=== PATIENT | female | born 1945 | race Caucasian/White ===

== ENCOUNTER 2020-03-29 08:03 | Inpatient (IN) | payer MEDICARE, SELFPAY ==
[~2020-03-29] VITALS: Ht 160 cm; Wt 68.0 kg
[2020-03-29 08:22] VITALS: BP 131/67
--- NOTE | 2020-03-29 08:22 | NUR ---
74 Y/O F C/C DIARRHEA SINCE THE March, ON/OFF, NO HEMATOCHEZIA, 3-4 EPISODES/DAY. PER PT OBTAINED RESULTS YESTERDAY OF BEING POSITIVE COVID. PT PRESENTS IN NO DISTRESS, EUPNIC, VSS, AMBULATORY, A/OX4. PT NKA. HX HTN,DM,HDL. RX WITH PT. NO VOMITTING. SIDE RAIL X1.
--- NOTE | 2020-03-29 08:43 | NUR ---
XRAY AT BEDSIDE
--- NOTE | 2020-03-29 09:13 | NUR ---
74 YO FEMALE CO DIARRHEA SINCE THE March, ON/OFF, NO HEMATOCHEZIA. PER PT POSITIVE COVID, OBTAINED RESULTS YESTERDAY. PT EUPNIC, NO DISTRESS. VSS. AMBULATORY. A/OX4. HX HTN,DM,HDL NKA
[2020-03-29 09:15] LABS: BASOPHILS % (AUTO) 0.9 % (0.0-2.0); HEMATOCRIT 40.2 % (36-48); HEMOGLOBIN 13.5 g/dL (12.0-16.0); LYMPHOCYTES # (AUTO) 0.9 K/uL (2.5-16.5); LYMPHOCYTES % (AUTO) 25.8 % (20.5-51.1); MEAN CORPUSCULAR HEMOGLOBIN 33 pg (27-31); MEAN CORPUSCULAR HGB CONC 34 g/dL (33-37); MEAN CORPUSCULAR VOLUME 96.6 fL (80-94); MONOCYTES # (AUTO) 0.4 K/uL (0.8-1.0); MONOCYTES % (AUTO) 11.5 % (1.7-9.3); NEUTROPHILS # (AUTO) 2.2 K/uL (1.8-7.7); NEUTROPHILS % (AUTO) 61.8 % (42.2-75.2); PLATELET COUNT (AUTO) 96 K/uL (140-450); RED BLOOD CELL COUNT(AUTO) 4.16 MIL/uL (4.20-5.40); RED CELL DISTRIBUTION WIDTH 13.2 % (11.6-13.7); WHITE BLOOD COUNT (AUTO) 3.5 K/uL (4.8-10.8)
--- NOTE | 2020-03-29 09:17 | NUR ---
PT TAKEN TO CT VIA JEANA
--- NOTE | 2020-03-29 09:19 | NUR ---
Trisha newby in [facility] - 03/29/20 at [address] SCAN VIA JEANA
--- NOTE | 2020-03-29 09:30 | NUR ---
PT RETURNED FROM CT
[2020-03-29 09:31] LABS: ALBUMIN 3.6 g/dL (3.4-5.0); ANION GAP 16.8 (8-16); ASPARTATE AMINOTRANSFERASE 55 U/L (15-37); CARBON DIOXIDE 23.2 mmol/L (21-32); CHLORIDE 102 mmol/L (98-107); CREATININE 0.8 mg/dL (0.6-1.3); GLUCOSE 129 mg/dL (74-106); SODIUM SERUM 138 mmol/L (136-145); TOTAL BILIRUBIN 0.5 mg/dL (0.0-1.0); UREA NITROGEN, BLOOD 11 mg/dL (7-18)
[2020-03-29 09:33] LABS: PROTHROMBIN TIME 10.4 secs (10.8-13.4)
[2020-03-29 09:49] LABS: C-REACTIVE PROTEIN QUANT 1.5 mg/dL (0.0-0.9)
[2020-03-29] MEDS ORDERED: AZITHROMYCIN 500 MG in DEXTROSE 5% 250 ML IV ONE (10:10)
[2020-03-29 10:18] LABS: LACTATE DEHYDROGENASE 260 U/L (81-234)
[2020-03-29] MEDS ORDERED: AZITHROMYCIN 500 MG INJ VIAL IV ONE (10:21)
[2020-03-29] MEDS ORDERED: GLIP10TA3 PO (10:38)
[2020-03-29] MEDS ORDERED: METF1000 PO (10:40)
[2020-03-29] MEDS ORDERED: SIMV10TA1 PO (10:41)
[2020-03-29] MEDS ORDERED: LISI5TAB18 PO (10:43)
--- NOTE | 2020-03-29 10:47 | NUR ---
PT WILL BE TRANSFERRED TO ANOTHER FACILITY PER INSURANCE
--- NOTE | 2020-03-29 11:29 | NUR ---
PT SLEEPING IN BED. NO RESP DISTRESS. ALL VSS.
[2020-03-29 14:58] LABS: APPEARANCE,URINE CLEAR (CLEAR); BILIRUBIN,URINE NEGATIVE (NEGATIVE); BLOOD, URINE NEGATIVE (NEGATIVE); COLOR,URINE YELLOW (YELLOW); LEUKOCYTE ESTERASE ,URINE NEGATIVE (NEGATIVE); NITRITE, URINE NEGATIVE (NEGATIVE); UGLUCOSE NEGATIVE (NEGATIVE)
[2020-03-29] MEDS ORDERED: HYDROcodone/APAP 5/325 MG 1 TAB TAB PO PRN (15:00)
[2020-03-29] MEDS ORDERED: ACETAMINOPHEN 325 MG TAB PO PRN (15:00)
[2020-03-29] MEDS ORDERED: ONDANSETRON 4 MG/2 ML VIAL IVP PRN (15:00)
[2020-03-29] MEDS ORDERED: ALBUTEROL HFA MDI 90 MCG/ACTUATION 8 GM INH PRN (15:35)
--- NOTE | 2020-03-29 15:45 | NUR ---
RECEIVED PT FROM ED NURSE JANINA. PT IS ALERT AND AWAKE TIMES 4. PT DOES NOT COMPLAIN OF ANY PAIN AT THIS TIME. RESPIRATIONS ARE EVEN AND UNLABORED ON ROOM AIR. SKIN IS INTACT, WITH IV ASYMPTOMATIC AND PATENT. PT IS CURRENTLY UNDER PROPER DROPLET PRECAUTIONS. VITAL SIGNS ARE WITHIN NORMAL LIMITS. BELONGINGS ARE WITH PT. SAFETY MEASURES IN PLACE AND WILL CONTINUE TO MONITOR.
[2020-03-29 15:50] VITALS: BP 122/49
--- NOTE | 2020-03-29 15:52 | NUR ---
Patient will be admitted to care of DR BROWNING. Admited to [facility]. Will go to room 129A. Belongings list completed. Report to ANKIT ZHENG.
--- NOTE | 2020-03-29 15:55 | NUR ---
MRSA SWAB HAS BEEN COLLECTED.
--- NOTE | 2020-03-29 16:10 | NUR ---
DISCHARGE PLANNING: THIS IS A 74 Y/O FEMALE PATIENT FROM HOME, WHO CAME IN DUE TO COUGH, DIARRHEA. PAST MEDICAL HISTORY INCLUDE HTN, HLD AND DM. INITIAL DIAGNOSIS OF COVID. COVID POSITIVE. ON ROCEPHIN AND AZITHROMYCIN. ON ROOM AIR. ID CONSULT IN PLACE. DC PLAN PENDING ON PATIENT'S RESPONSE TO TREATMENT.
--- NOTE | 2020-03-29 17:50 | NUR ---
PT IS CURRENTLY SITTING IN BED WATCHING TV WITH NO SIGNS OF DISTRESS AT THIS TIME. SAFETY MEASURES IN PLACE AND WILL CONTINUE TO MONITOR.
--- NOTE | 2020-03-29 18:35 | NUR ---
PT IS CURRENTLY SITTING IN BED TALKING ON THE PHONE WITH NO SIGNS OF DISTRESS. PATIENTS DINNER IS AT BEDSIDE. PT DOES NOT COMPLAIN OF ANY PAIN AT THIS TIME. SAFETY MEASURES IN PLACE AND WILL CONTINUE TO MONITOR.
--- NOTE | 2020-03-29 18:36 | NUR ---
PT ASKED FOR MORE WATER. WILL ENDORSE TO PROTECTIVE SERVICE SPECIALIST NURSE FOR CONTINUITY OF CARE.
[2020-03-29] MEDS ORDERED: ALBUTEROL 0.083% 2.5 MG/3 ML NEBU INH SCH (19:00)
[2020-03-29 20:00] VITALS: BP 127/51
--- NOTE | 2020-03-29 20:00 | NUR ---
RECEIVED PATIENT AWAKE IN BED. NO S/S OF DISTRESS NOTED. PT ON ROOM AIR. NO SOB. PT WITH INTERMITTEN DRY COUGH. NO C/O PAIN AT THIS TIME. BED LOWERED WITH CALL LIGHT WITHIN REACH
[2020-03-29] MEDS ORDERED: SIMVASTATIN 10 MG TAB PO SCH (21:00)
[2020-03-29] MEDS: BLOOD GLUCOSE MONITORING 1 DEV DEV FS SCH (21:47)
[2020-03-29] MEDS: ZINC SULF 220 MG CAP PO SCH (21:47)
[2020-03-29] MEDS: APIXABAN 2.5 MG TAB PO SCH (21:47)
[2020-03-29] MEDS: metroNIDAZOLE 500 MG TAB PO SCH (21:47)
[2020-03-29] MEDS: INSULIN LISPRO SLIDING SCALE 100 UNITS/ML VIAL SUBQ PRN (21:55)
[2020-03-30] VITALS: BP 113/57
--- NOTE | 2020-03-30 00:36 | NUR ---
EDUCATED PT ABOUT THE NEED FOR SPUTUM AND STOOL SAMPLE FOR LAB. PT VERBALIZED UNDERSTANDING
--- NOTE | 2020-03-30 03:18 | NUR ---
PT ASLEEP IN BED. NO S/S OF DISTRESS NOTED
[2020-03-30] MEDS: metroNIDAZOLE 500 MG TAB PO SCH ×2 (05:14→13:16)
[2020-03-30 05:21] VITALS: BP 104/69
--- NOTE | 2020-03-30 05:23 | NUR ---
SPUTUM SAMPLE COLLECTED
[2020-03-30] MEDS: BLOOD GLUCOSE MONITORING 1 DEV DEV FS SCH ×2 (07:27→11:30)
--- NOTE | 2020-03-30 07:28 | NUR ---
PT REPORT GIVEN TO DAYSHIFT NURSE . PT ENDORSED IN STABLE CONDITION
--- NOTE | 2020-03-30 07:29 | NUR ---
RECEIVED REPORT FROM RESIDENTIAL TEAM LEADER NURSE. PATIENT LYING DOWN IN BED SLEEPING, AROUSABLE BY VOICE. NO DISTRESS NOTED. DENIES ANY PAIN. AAOX4, CALM, COOPERATIVE, SKIN COLOR APPROPRIATE TO ETHNICITY, WARM TO TOUCH. SKIN INTACT. RESPIRATIONS EVEN, UNLABORED, ON ROOM AIR. IV SITE INTACT, PATENT, AND INFUSING IVF PER MD ORDERS. REVIEWED PLAN OF CARE WITH PATIENT. PATIENT VERBALIZED UNDERSTANDING SAFETY MEASURES IN PLACE CALL LIGHT WITHIN REACH. WILL CONTINUE TO MONITOR.
[2020-03-30 08:00] VITALS: BP 140/55
[2020-03-30] MEDS: APIXABAN 2.5 MG TAB PO SCH (08:58)
[2020-03-30] MEDS: ZINC SULF 220 MG CAP PO SCH (08:58)
--- NOTE | 2020-03-30 08:59 | NUR ---
SCHEDULED MEDICATIONS DUE GIVEN. WILL CONTINUE TO MONITOR.
[2020-03-30] MEDS ORDERED: LISINOPRIL 5 MG TAB PO SCH (09:00)
[2020-03-30] MEDS ORDERED: AZITHROMYCIN 500 MG in DEXTROSE 5% 250 ML IV SCH (09:00)
[2020-03-30] MEDS ORDERED: ENOXAPARIN 40 MG/0.4 ML SYR SUBQ SCH (09:00)
[2020-03-30] MEDS ORDERED: LEVOFLOXACIN 500 MG TAB PO SCH (09:00)
[2020-03-30] MEDS ORDERED: ASCORBIC ACID 500 MG TAB PO SCH (09:00)
--- NOTE | 2020-03-30 09:27 | NUR ---
PATIENT HAS BEEN SCREENED AND CATEGORIZED MODERATE NUTRITION RISK. PATIENT WILL BE SEEN WITHIN 3-5 DAYS OF ADMISSION. 04/01/2020-04/03/[address]
[2020-03-30 12:00] VITALS: BP 150/56
[2020-03-30] MEDS: INSULIN LISPRO SLIDING SCALE 100 UNITS/ML VIAL SUBQ PRN (13:16)
--- NOTE | 2020-03-30 13:17 | NUR ---
SCHEDULED MEDICATIONS DUE GIVEN. WILL CONTINUE TO MONITOR.
[2020-03-30 13:58] LABS: BASOPHILS # (AUTO) 0.1 K/uL (0.00-0.22); BASOPHILS % (AUTO) 1.5 % (0.0-2.0); HEMATOCRIT 38.5 % (36-48); HEMOGLOBIN 12.9 g/dL (12.0-16.0); LYMPHOCYTES # (AUTO) 0.9 K/uL (2.5-16.5); LYMPHOCYTES % (AUTO) 26.7 % (20.5-51.1); MEAN CORPUSCULAR HEMOGLOBIN 33 pg (27-31); MEAN CORPUSCULAR HGB CONC 33 g/dL (33-37); MEAN CORPUSCULAR VOLUME 97.1 fL (80-94); MONOCYTES # (AUTO) 0.5 K/uL (0.8-1.0); MONOCYTES % (AUTO) 15.4 % (1.7-9.3); NEUTROPHILS # (AUTO) 1.9 K/uL (1.8-7.7); NEUTROPHILS % (AUTO) 56.4 % (42.2-75.2); PLATELET COUNT (AUTO) 121 K/uL (140-450); RED BLOOD CELL COUNT(AUTO) 3.96 MIL/uL (4.20-5.40); RED CELL DISTRIBUTION WIDTH 13.1 % (11.6-13.7); WHITE BLOOD COUNT (AUTO) 3.5 K/uL (4.8-10.8)
[2020-03-30 14:52] LABS: ALBUMIN 3.1 g/dL (3.4-5.0); ASPARTATE AMINOTRANSFERASE 102 U/L (15-37); CARBON DIOXIDE 22.4 mmol/L (21-32); CHLORIDE 101 mmol/L (98-107); GLUCOSE 333 mg/dL (74-106); POTASSIUM 4.4 mmol/L (3.5-5.1); SODIUM SERUM 136 mmol/L (136-145); TOTAL BILIRUBIN 0.3 mg/dL (0.0-1.0); UREA NITROGEN, BLOOD 12 mg/dL (7-18)
--- NOTE | 2020-03-30 16:40 | NUR ---
DISCHARGE INSTRUCTIONS PROVIDED TO PATIENT IN [place] USING GLASS CARRIER PHONE # [phone]. INSTRUCTIONS ON NEW/CHANGED MEDICATIONS REGIMEN AND SIDE EFFECTS, COVID 19 HOME ISOLATION AND PRECAUTIONS INSTRUCTIONS HANDOUT GIVEN, AND TO FOLLOW-UP WITH PCP IN 2 WEEKS. ANSWERED ALL OF PATIENT'S QUESTIONS REGARDING DISCHARGE TO HOME WITH COVID POSITIVE AND PNA. PATIENT VERBALIZED COMPLETE UNDERSTANDING. IV SITE REMOVED WITH MINIMAL BLOOD AND LUMEN COMPLETELY INTACT. ID BANDS REMOVED. PATIENT TO GET DRESSED AND THEN TO DRIVE HERSELF HOME. PATIENT REFUSES WHEELCHAIR AND WILL AMBULATE OUTSIDE HOSPITAL. WILL CONTINUE TO MONITOR.
--- NOTE | 2020-03-30 16:50 | NUR ---
PATIENT ALL DRESSED AND READY TO GO HOME. ESCORTED PATIENT DOWN TO LOBBY VIA STEADY AMBULATION. PATIENT DISCHARGED AT THIS TIME TO HOME IN STABLE CONDITION.
== END 2020-03-30 16:50 | disposition home or self-care (01) | DRG 177 ==
LOC: EEVIPCON 08:03 → MED 08:03 → MMU 15:01
PROVIDERS: ADMIT Internal Medicine; ATTEND Internal Medicine
DX: U07.1 COVID-19 (principal); J12.89 Other viral pneumonia; J98.11 Atelectasis; E11.9 Type 2 diabetes mellitus without complications; E78.00 Pure hypercholesterolemia, unspecified; E78.5 Hyperlipidemia, unspecified; I10 Essential (primary) hypertension; R09.02 Hypoxemia; I25.10 Atherosclerotic heart disease of native coronary artery without angina pectoris; Z90.710 Acquired absence of both cervix and uterus; Z95.0 Presence of cardiac pacemaker
CPT/HCPCS: 36415; 36600; 71045; 80053; 81003; 82550; 82728; 82803; 82948; 83605; 83615; 83880; 84484; 85025; 85379; 85384; 85610; 85730; 86140; 87040; 87070; 87081; 87086; 87205; 93005; 96365; 99285; J0456; J0696; J1815; J7060; Q0092

== ENCOUNTER 2021-01-19 12:17 | Emergency (ER) | payer MEDICARE, SELFPAY ==
[~2021-01-19] VITALS: Ht 160 cm; Wt 65.8 kg
[~2021-01-19 12:17] MED LIST: GLIP10TA3 PO; LISI5TAB18 PO; METF1000 PO; SIMV10TA1 PO
--- NOTE | 2021-01-19 12:25 | NUR ---
Patient ambulated to bed 4 with family. RN evaluating the patient at bedside.
[2021-01-19 12:30] VITALS: BP 141/45
--- NOTE | 2021-01-19 12:35 | NUR ---
Pt not feeling well x2 weeks. Pt feeling more tired and fatigue than usual. Pt c/o of pain in hips that radiates to chest with palpitations on 01/16/21. Pt denies chest pain at this time. pt c/o upper back pain 04/12 with a headache. Pt has pacemaker placed in 2010. Pt on cardiac tele monitor. Awaiting for ERMD to evaluate pt. Allergies: NKA
--- NOTE | 2021-01-19 13:30 | NUR ---
computer operations technician at bedside.
--- NOTE | 2021-01-19 13:44 | NUR ---
Phleb at bedside
[2021-01-19 13:53] LABS: BASOPHILS % (AUTO) 0.2 % (0.0-2.0); EOSINOPHILS % (AUTO) 0.4 % (0.0-4.0); HEMATOCRIT 38.4 % (36-48); HEMOGLOBIN 12.9 g/dL (12.0-16.0); LYMPHOCYTES # (AUTO) 0.9 K/uL (2.5-16.5); LYMPHOCYTES % (AUTO) 12.2 % (20.5-51.1); MEAN CORPUSCULAR HEMOGLOBIN 33 pg (27-31); MEAN CORPUSCULAR HGB CONC 34 g/dL (33-37); MEAN CORPUSCULAR VOLUME 96.6 fL (80-94); MONOCYTES # (AUTO) 0.9 K/uL (0.8-1.0); MONOCYTES % (AUTO) 12.1 % (1.7-9.3); NEUTROPHILS # (AUTO) 5.3 K/uL (1.8-7.7); NEUTROPHILS % (AUTO) 75.1 % (42.2-75.2); PLATELET COUNT (AUTO) 126 K/uL (140-450); RED BLOOD CELL COUNT(AUTO) 3.97 MIL/uL (4.20-5.40); RED CELL DISTRIBUTION WIDTH 13.4 % (11.6-13.7)
--- NOTE | 2021-01-19 13:59 | NUR ---
Dr. Machado is evaluating the patient at bedside.
[2021-01-19 14:08] LABS: ALBUMIN 3.6 g/dL (3.4-5.0); ANION GAP 12.7 (8-16); ASPARTATE AMINOTRANSFERASE 22 U/L (15-37); CARBON DIOXIDE 25.6 mmol/L (21-32); CHLORIDE 102 mmol/L (98-107); GLUCOSE 202 mg/dL (74-106); POTASSIUM 4.3 mmol/L (3.5-5.1); SODIUM SERUM 136 mmol/L (136-145); TOTAL BILIRUBIN 0.4 mg/dL (0.0-1.0); UREA NITROGEN, BLOOD 21 mg/dL (7-18)
[2021-01-19] MEDS ORDERED: GABA-636 PO (14:55)
[2021-01-19 15:13] VITALS: BP 128/55
--- NOTE | 2021-01-19 15:14 | NUR ---
Patient discharged with v/s stable. Written and verbal after care instructions given and explained.Patient alert, oriented and verbalized understanding of instructions. Ambulatory with steady gait. All questions addressed prior to discharge. ID band removed. Patient advised to follow up with PMD. Rx of Gabapentin was given. Patient educated on indication of medication including possible reaction and side effects. Opportunity to ask questions provided and answered.
== END 2021-01-19 15:14 | disposition home or self-care (01) ==
LOC: MED 12:17
DX: E11.65 Type 2 diabetes mellitus with hyperglycemia (principal); G90.09 Other idiopathic peripheral autonomic neuropathy; R42 Dizziness and giddiness; I10 Essential (primary) hypertension; E78.00 Pure hypercholesterolemia, unspecified; Z20.822 Contact with and (suspected) exposure to COVID-19; Z79.899 Other long term (current) drug therapy; Z95.0 Presence of cardiac pacemaker
CPT/HCPCS: 36415; 71045; 80053; 84484; 85025; 93005; 99285; U0003

== ENCOUNTER 2023-01-08 16:20 | Emergency (ER) | payer MEDICARE ==
[~2023-01-08] VITALS: Ht 154.9 cm; Wt 65.8 kg
[~2023-01-08 16:20] MED LIST changes: +GABA-636 PO; +METF-1274 PO; -METF1000 PO; +SIMV-371 PO; -SIMV10TA1 PO
[2023-01-08 16:53] VITALS: BP 140/69
--- NOTE | 2023-01-08 17:08 | NUR ---
LAB AT BEDSIDE.
--- NOTE | 2023-01-08 17:12 | NUR ---
77 Y/O F BIB SELF C/O NECK, HEAD AND R SHOULDER PAIN 8/10 AND HEADACHE X1 WEEK. PMH: HTN,DM, CHOLESTEROL
[2023-01-08 17:17] LABS: BASOPHILS % (AUTO) 0.3 % (0.0-2.0); EOSINOPHILS # (AUTO) 0.1 K/uL (0-0.4); EOSINOPHILS % (AUTO) 1.2 % (0.0-4.0); HEMATOCRIT 38.6 % (36-48); HEMOGLOBIN 13.1 g/dL (12.0-16.0); LYMPHOCYTES # (AUTO) 1.3 K/uL (2.5-16.5); LYMPHOCYTES % (AUTO) 19.5 % (20.5-51.1); MEAN CORPUSCULAR HEMOGLOBIN 32 pg (27-31); MEAN CORPUSCULAR HGB CONC 34 g/dL (33-37); MEAN CORPUSCULAR VOLUME 95.2 fL (80-94); MONOCYTES # (AUTO) 0.7 K/uL (0.8-1.0); NEUTROPHILS # (AUTO) 4.4 K/uL (1.8-7.7); PLATELET COUNT (AUTO) 132 K/uL (140-450); RED BLOOD CELL COUNT(AUTO) 4.05 MIL/uL (4.20-5.40); RED CELL DISTRIBUTION WIDTH 13.4 % (11.6-13.7); WHITE BLOOD COUNT (AUTO) 6.5 K/uL (4.8-10.8)
[2023-01-08 17:33] LABS: ALBUMIN 3.7 g/dL (3.4-5.0); ASPARTATE AMINOTRANSFERASE 26 U/L (15-37); CARBON DIOXIDE 21.3 mmol/L (21-32); CHLORIDE 105 mmol/L (98-107); CREATININE 0.9 mg/dL (0.6-1.3); GLUCOSE 163 mg/dL (74-106); POTASSIUM 4.3 mmol/L (3.5-5.1); SODIUM SERUM 141 mmol/L (136-145); TOTAL BILIRUBIN 0.3 mg/dL (0.0-1.0); UREA NITROGEN, BLOOD 22 mg/dL (7-18)
[2023-01-08] MEDS ORDERED: ACETAMINOPHEN 325 MG TAB PO ONE (18:05)
[2023-01-08] MEDS ORDERED: MECLIZINE 25 MG TAB PO ONE (18:05)
--- NOTE | 2023-01-08 18:18 | NUR ---
PT TO CT SCAN VIA WHEELCHAIR.
--- NOTE | 2023-01-08 19:19 | NUR ---
GAVE REPORT TO ALONSO KEBEDE.
--- NOTE | 2023-01-08 21:06 | NUR ---
PT RESTING IN BED WITH HOB ELEVATED. PT PAIN LEVEL 10. PENDING RESULTS / DISPO
[2023-01-08] MEDS ORDERED: MECL-303 PO (21:12)
[2023-01-08 21:19] VITALS: BP 141/60
--- NOTE | 2023-01-08 21:19 | NUR ---
Patient discharged with v/s stable. Written and verbal after care instructions given and explained. Patient verbalized understanding. Ambulatory with steady gait. All questions addressed prior to discharge. Advised to follow up with PMD.
--- NOTE | 2023-01-08 21:31 | NUR ---
The patient's care was reviewed and supervised by Samreen Orta RN.
== END 2023-01-08 21:19 | disposition home or self-care (01) ==
LOC: MED 16:20
DX: R51.9 Headache, unspecified (principal); M54.2 Cervicalgia; I10 Essential (primary) hypertension; E11.9 Type 2 diabetes mellitus without complications; E78.5 Hyperlipidemia, unspecified; Z79.4 Long term (current) use of insulin; Z79.899 Other long term (current) drug therapy
CPT/HCPCS: 36415; 70450; 80053; 85025; 99285; J8597

== ENCOUNTER 2023-01-29 10:33 | Inpatient (IN) | payer MEDICARE ==
[~2023-01-29] VITALS: Ht 157.5 cm; Wt 72.1 kg
[2023-01-29 10:33] VITALS: BP 174/78
[~2023-01-29 10:33] MED LIST changes: +MECL-303 PO
--- NOTE | 2023-01-29 10:37 | NUR ---
Patient BIBA to bed 7.
--- NOTE | 2023-01-29 10:50 | NUR ---
IV started, blood work obtained walked to lab.
--- NOTE | 2023-01-29 11:13 | NUR ---
PT.BACK FROM CT.
[2023-01-29 11:22] LABS: BASOPHILS % (AUTO) 0.4 % (0.0-2.0); EOSINOPHILS # (AUTO) 0.1 K/uL (0-0.4); HEMATOCRIT 40.1 % (36-48); HEMOGLOBIN 13.5 g/dL (12.0-16.0); LYMPHOCYTES # (AUTO) 1.5 K/uL (2.5-16.5); LYMPHOCYTES % (AUTO) 30.5 % (20.5-51.1); MEAN CORPUSCULAR HEMOGLOBIN 32 pg (27-31); MEAN CORPUSCULAR HGB CONC 34 g/dL (33-37); MEAN CORPUSCULAR VOLUME 95.2 fL (80-94); MONOCYTES # (AUTO) 0.5 K/uL (0.8-1.0); MONOCYTES % (AUTO) 9.6 % (1.7-9.3); NEUTROPHILS # (AUTO) 2.9 K/uL (1.8-7.7); NEUTROPHILS % (AUTO) 57.5 % (42.2-75.2); PLATELET COUNT (AUTO) 139 K/uL (140-450); RED BLOOD CELL COUNT(AUTO) 4.22 MIL/uL (4.20-5.40); RED CELL DISTRIBUTION WIDTH 13.3 % (11.6-13.7)
[2023-01-29] MEDS ORDERED: DAPA10TA PO (11:40)
[2023-01-29] MEDS ORDERED: LISI-486 PO (11:40)
[2023-01-29 11:41] LABS: APPEARANCE,URINE CLEAR (CLEAR); BILIRUBIN,URINE NEGATIVE (NEGATIVE); BLOOD, URINE NEGATIVE (NEGATIVE); COLOR,URINE YELLOW (YELLOW); LEUKOCYTE ESTERASE ,URINE NEGATIVE (NEGATIVE); NITRITE, URINE NEGATIVE (NEGATIVE); PH,URINE 6.5 (5.0-9.0); UGLUCOSE 3+ (NEGATIVE)
[2023-01-29] MEDS ORDERED: OMEG-64 PO (11:41)
[2023-01-29] MEDS ORDERED: DAPA5TAB PO (11:41)
[2023-01-29 11:43] LABS: PROTHROMBIN TIME 11.6 secs (10.8-13.4)
[2023-01-29 11:44] LABS: ALBUMIN 3.6 g/dL (3.4-5.0); ANION GAP 16.3 (8-16); ASPARTATE AMINOTRANSFERASE 24 U/L (15-37); CARBON DIOXIDE 25.8 mmol/L (21-32); CHLORIDE 99 mmol/L (98-107); CREATININE 0.9 mg/dL (0.6-1.3); GLUCOSE 239 mg/dL (74-106); POTASSIUM 4.1 mmol/L (3.5-5.1); SODIUM SERUM 137 mmol/L (136-145); TOTAL BILIRUBIN 0.4 mg/dL (0.0-1.0); UREA NITROGEN, BLOOD 15 mg/dL (7-18)
--- NOTE | 2023-01-29 12:05 | NUR ---
MD NEUROLOGIST CALLED AND SPOKE WITH ER ABOUT PT.
--- NOTE | 2023-01-29 12:06 | NUR ---
The patient's care was reviewed and supervised by IQRA NICOLAS RN.
[2023-01-29] MEDS ORDERED: ASPIRIN 325 MG TAB PO ONE (12:10)
--- NOTE | 2023-01-29 12:46 | NUR ---
Patient swallow eval performed and was able to swallow water and take apple sauce. No evidence of aspiration or distress noted.
[2023-01-29] MEDS ORDERED: MORPHINE SULFATE 4 MG/ML SYR IVP ONE (13:15)
[2023-01-29] MEDS ORDERED: ONDANSETRON 4 MG/2 ML VIAL IVP ONE (13:15)
--- NOTE | 2023-01-29 13:58 | NUR ---
Going to CT with tech.
[2023-01-29] MEDS ORDERED: HEPARIN PER PHARMACY MC STA (14:46)
[2023-01-29] MEDS ORDERED: HEPARIN PER PHARMACY MC PRN ×2 (15:20→17:00)
[2023-01-29] MEDS ORDERED: MORPHINE SULFATE 4 MG/ML SYR IVP PRN (15:25)
[2023-01-29] MEDS ORDERED: ACETAMINOPHEN 325 MG TAB PO PRN (15:25)
[2023-01-29] MEDS ORDERED: MAG SULF 2000 MG/WATER PREMIX 50 ML IV PRN (15:25)
[2023-01-29] MEDS ORDERED: POTASSIUM CHLORIDE 10 MEQ TABER PO PRN (15:25)
[2023-01-29] MEDS ORDERED: ONDANSETRON 4 MG/2 ML VIAL IVP PRN (15:25)
[2023-01-29] MEDS ORDERED: KCL 20 MEQ IN 100 mL PREMIX 200 ML IV PRN (15:25)
[2023-01-29] MEDS ORDERED: HYDROcodone/APAP 5/325 MG 1 TAB TAB PO PRN (15:25)
[2023-01-29] MEDS: hePARIN / DEXT 5% PREMIX 250 ML IV SCH ×3 (15:50→23:35)
[2023-01-29] MEDS ORDERED: LEVOFLOXACIN 500 MG/D5W PREMIX 100 ML IV SCH (16:00)
--- NOTE | 2023-01-29 16:00 | NUR ---
PT ARRIVED ON UNIT VIA BED. IV HEPARIN INFUSING AT 700U/HR.
[2023-01-29 16:06] LABS: PROTHROMBIN TIME 11.5 secs (10.8-13.4)
--- NOTE | 2023-01-29 16:17 | NUR ---
Dr. Parry at bedside to speak with patient and family.
--- NOTE | 2023-01-29 16:29 | NUR ---
Patient hooked up to patient monitor. Vital signs stable. Dr. Parry spoke with family member at bedside.
--- NOTE | 2023-01-29 16:46 | NUR ---
Report given to ANKIT Waldron for continuity of care. Patient in stable condition. Still on heparin drip. Vitals stable. Patient aware of transfer to [facility]. No c/o pain. Belongings with patient.
--- NOTE | 2023-01-29 17:06 | NUR ---
PATIENT HAS BEEN SCREENED AND CATEGORIZED MODERATE NUTRITION RISK. PATIENT WILL BE SEEN WITHIN 3-5 DAYS OF ADMISSION. REVIEWED BY FELIPE NEELY RD
--- NOTE | 2023-01-29 19:42 | NUR ---
RECEIVED REPORT FROM DAY SHIFT NURSE FOR CONTINUITY OF CARE. PT IS AWAKE AT THIS TIME, ALERT AND ORIENTED X4. CROATIAN SPEAKING, NO COMPLAINTS OF CHEST PAIN AT THIS TIME. PT IS ON ROOM AIR WITH NO APPARENT SIGNS OF RESPIRATORY DISTRESS NOTED. IV SITE TO LEFT AC 20 GAUGE, INTACT AND PATENT. CALL LIGHT WITHIN REACH, SAFETY MEASURES IN PLACE, WILL MONITOR FREQUENTLY THROUGHOUT SHIFT.
[2023-01-29 20:00] VITALS: BP 146/62
[2023-01-30] VITALS: BP 117/68
--- NOTE | 2023-01-30 01:51 | NUR ---
PT ASLEEP AT THIS TIME. NO APPARENT SIGNS OF DISTRESS NOTED. WILL CONTINUE TO MONITOR.
[2023-01-30 04:00] VITALS: BP 129/70
[2023-01-30 06:08] LABS: BASOPHILS % (AUTO) 0.5 % (0.0-2.0); EOSINOPHILS # (AUTO) 0.1 K/uL (0-0.4); HEMATOCRIT 38.5 % (36-48); HEMOGLOBIN 13.1 g/dL (12.0-16.0); LYMPHOCYTES # (AUTO) 1.7 K/uL (2.5-16.5); MEAN CORPUSCULAR HEMOGLOBIN 32 pg (27-31); MEAN CORPUSCULAR HGB CONC 34 g/dL (33-37); MEAN CORPUSCULAR VOLUME 94.3 fL (80-94); MONOCYTES # (AUTO) 0.5 K/uL (0.8-1.0); MONOCYTES % (AUTO) 8.2 % (1.7-9.3); NEUTROPHILS # (AUTO) 4.2 K/uL (1.8-7.7); NEUTROPHILS % (AUTO) 64.3 % (42.2-75.2); PLATELET COUNT (AUTO) 142 K/uL (140-450); RED BLOOD CELL COUNT(AUTO) 4.09 MIL/uL (4.20-5.40); RED CELL DISTRIBUTION WIDTH 13.2 % (11.6-13.7); WHITE BLOOD COUNT (AUTO) 6.5 K/uL (4.8-10.8)
[2023-01-30] MEDS: hePARIN / DEXT 5% PREMIX 250 ML IV SCH (06:14)
[2023-01-30 06:18] LABS: ANION GAP 10.2 (8-16); CHLORIDE 102 mmol/L (98-107); CREATININE 0.8 mg/dL (0.6-1.3); GLUCOSE 109 mg/dL (74-106); POTASSIUM 4.2 mmol/L (3.5-5.1); SODIUM SERUM 137 mmol/L (136-145); UREA NITROGEN, BLOOD 15 mg/dL (7-18)
[2023-01-30 06:54] LABS: MAGNESIUM 1.7 mg/dL (1.8-2.4); PHOSPHORUS 3.9 mg/dL (2.5-4.9)
[2023-01-30 08:00] VITALS: BP 130/74
[2023-01-30] MEDS: DOCUSATE SODIUM 100 MG GELCAP PO SCH (08:10)
[2023-01-30] MEDS: ECOTRIN 81 MG TABEC PO SCH (08:10)
[2023-01-30] MEDS: ATORVASTATIN 20 MG TAB PO SCH (08:10)
[2023-01-30] MEDS ORDERED: LEVOFLOXACIN 250 MG/D5 PREMIX 50 ML IV SCH (09:00)
[2023-01-30 12:00] VITALS: BP 117/50
--- NOTE | 2023-01-30 13:05 | NUR ---
CALL FROM LAB: PTT = 102.9. HEPARIN SHUT OFF (HELD) X 1 HR. WILL RESTART AT 1400 PER PROTOCOL. PT'S DTR AT BEDSIDE AND INFORMED.
--- NOTE | 2023-01-30 14:00 | NUR ---
RESTARTED HEPARIN AT 200 UNITS BELOW CURRENT RATE AFTER BEING OFF FOR ONE HOUR. RATE NOW 750 U/HR.
--- NOTE | 2023-01-30 15:48 | NUR ---
NOTIFIED BY ALAN OF LABORATORY THAT TROPONIN = 1173. DARIEL HURLEY SENT [facility] CURRENT TROPONIN RESULT.
--- NOTE | 2023-01-30 16:11 | NUR ---
DR. LAZARO - NO NEW ORDERS (NNO).
--- NOTE | 2023-01-30 19:00 | NUR ---
RECEIVED REPORT FROM DAY SHIFT NURSE FOR CONTINUITY OF CARE. PT IS AWAKE AT THIS TIME. A&O X4. NO COMPLAINTS OF PAIN AT THIS TIME BUT IS EXPERIENCING DIZZINESS. CURRENTLY ON ROOM AIR SATING WNL. LAB REPORTS SHOW INCREASED TROPONIN LEVEL OF 1173. DR WAS MADE AWARE AND NO NEW ORDERS WERE PLACED. IV SITE LOCATED AT LEFT AC 20 GAUGE. ENCOURAGED PT TO USE CALL LIGHT FOR ASSISTANCE TO THE RESTROOM.
[2023-01-30 20:00] VITALS: BP 147/57
[2023-01-30] MEDS: MAGNESIUM OXIDE 400 MG TAB PO PRN (22:46)
--- NOTE | 2023-01-30 22:53 | NUR ---
PT MAGNESIUM LEVEL OF 1.7. ADMINISTERED MAG-0X 400 MG PO, PT TOLERATED WELL, WILL CONTINUE TO MONITOR.
--- NOTE | 2023-01-30 23:20 | NUR ---
PT'S PTT LEVEL =- 42.1. BOLUS WAS GIVEN AND DRIP RATE WAS CHANGED TO 8.5 ML/HR. PT TOLERATING WELL, WILL CONTINUE TO MONITOR.
[2023-01-31] VITALS: BP 117/48
[2023-01-31] MEDS: hePARIN / DEXT 5% PREMIX 250 ML IV SCH ×2 (00:10)
[2023-01-31 04:00] VITALS: BP 109/61
--- NOTE | 2023-01-31 06:54 | NUR ---
PENDING 0600 APTT RESULTS. VITAL SIGNS WNL. PT STATES NO PAIN AT THIS TIME. WILL ENDORSE TO DAY SHIFT NURSE FOR CONTINUITY OF CARE.
[2023-01-31 06:58] LABS: BASOPHILS % (AUTO) 0.5 % (0.0-2.0); EOSINOPHILS # (AUTO) 0.1 K/uL (0-0.4); EOSINOPHILS % (AUTO) 1.6 % (0.0-4.0); HEMATOCRIT 37.1 % (36-48); HEMOGLOBIN 12.4 g/dL (12.0-16.0); LYMPHOCYTES # (AUTO) 1.1 K/uL (2.5-16.5); LYMPHOCYTES % (AUTO) 24.8 % (20.5-51.1); MEAN CORPUSCULAR HEMOGLOBIN 31 pg (27-31); MEAN CORPUSCULAR HGB CONC 33 g/dL (33-37); MEAN CORPUSCULAR VOLUME 93.8 fL (80-94); MONOCYTES # (AUTO) 0.4 K/uL (0.8-1.0); MONOCYTES % (AUTO) 9.5 % (1.7-9.3); NEUTROPHILS # (AUTO) 2.9 K/uL (1.8-7.7); NEUTROPHILS % (AUTO) 63.6 % (42.2-75.2); PLATELET COUNT (AUTO) 105 K/uL (140-450); RED BLOOD CELL COUNT(AUTO) 3.95 MIL/uL (4.20-5.40); RED CELL DISTRIBUTION WIDTH 12.8 % (11.6-13.7); WHITE BLOOD COUNT (AUTO) 4.6 K/uL (4.8-10.8)
[2023-01-31 07:00] LABS: ANION GAP 9.6 (8-16); CARBON DIOXIDE 29.4 mmol/L (21-32); CHLORIDE 103 mmol/L (98-107); CREATININE 0.7 mg/dL (0.6-1.3); GLUCOSE 157 mg/dL (74-106); SODIUM SERUM 138 mmol/L (136-145); UREA NITROGEN, BLOOD 17 mg/dL (7-18)
[2023-01-31 07:05] LABS: MAGNESIUM 1.7 mg/dL (1.8-2.4); PHOSPHORUS 3.1 mg/dL (2.5-4.9)
--- NOTE | 2023-01-31 07:27 | NUR ---
APTT LEVEL OF 48.6.WILL ENDORSE TO DAY SHIFT NURSE.
[2023-01-31 08:00] VITALS: BP 91/39
[2023-01-31] MEDS: ATORVASTATIN 20 MG TAB PO SCH (10:58)
[2023-01-31] MEDS: DOCUSATE SODIUM 100 MG GELCAP PO SCH (10:59)
[2023-01-31] MEDS: ECOTRIN 81 MG TABEC PO SCH (10:59)
[2023-01-31 12:00] VITALS: BP 133/53
--- NOTE | 2023-01-31 15:51 | NUR ---
RECEIVE SECOND WITHIN THEATRICAL PTT (55.9) RESULT SINCE BEGINNER OF THE SHIFT (FIRST PTT=48.6). THIRD PTT ORDER PLACED FOR 2139. WILL ENDORSE FOR FOLLOW UP. Addendum: 01/31/23 at 1624 by Val Vicente RN RECEIVE [facility] KEMAR ([phone]) CALL FOR UPDATE PATIENT'S STATUS REGARDING TO POSSIBLE DISCHARGE/TRANSFER OUT DATE. NURSE REPORT THAT SOCIAL SERVICE REQUESTING ORDER IS PRESENT; & PATIENT IS POSSIBLE TRANSFER TO OTHER HOSPITAL FOR HEART CATHETER PROCEDURE. THEREFORE; PATIENT WOULD NOT DISCHARGE SOON.
[2023-01-31 16:00] VITALS: BP 146/53
--- NOTE | 2023-01-31 18:52 | NUR ---
ENDORSEMENT PATIENT IN STABLE CONDITION TO PM SHIFT NURSE WHILE HEPARIN DRIP INFUSING @8.5ML/HR VIA LAC. PATIENT ALREADY HAS TWO PTT WITHIN THERAPEUTICAL RANGE. IF 2140'S PTT WITHIN THERAPEUTICAL RANGE, NEXT PTT DRAW WILL SCHEDULE AFTER 24 HOURS
[2023-01-31 20:00] VITALS: BP 142/92
[2023-01-31] MEDS: ZOLPIDEM 5 MG TAB PO PRN (21:17)
[2023-01-31] MEDS: MAGNESIUM OXIDE 400 MG TAB PO PRN (23:08)
[2023-02-01] VITALS (7 sets, daily range): BP systolic 119–138; BP diastolic 48–65
[2023-02-01] MEDS: hePARIN / DEXT 5% PREMIX 250 ML IV SCH (04:43)
[2023-02-01 05:20] LABS: BASOPHILS % (AUTO) 0.5 % (0.0-2.0); EOSINOPHILS # (AUTO) 0.1 K/uL (0-0.4); EOSINOPHILS % (AUTO) 2.2 % (0.0-4.0); HEMATOCRIT 37.2 % (36-48); HEMOGLOBIN 12.4 g/dL (12.0-16.0); LYMPHOCYTES # (AUTO) 1.7 K/uL (2.5-16.5); LYMPHOCYTES % (AUTO) 29.7 % (20.5-51.1); MEAN CORPUSCULAR HEMOGLOBIN 32 pg (27-31); MEAN CORPUSCULAR HGB CONC 33 g/dL (33-37); MEAN CORPUSCULAR VOLUME 94.7 fL (80-94); MONOCYTES # (AUTO) 0.5 K/uL (0.8-1.0); MONOCYTES % (AUTO) 9.6 % (1.7-9.3); NEUTROPHILS # (AUTO) 3.3 K/uL (1.8-7.7); PLATELET COUNT (AUTO) 114 K/uL (140-450); RED BLOOD CELL COUNT(AUTO) 3.93 MIL/uL (4.20-5.40); RED CELL DISTRIBUTION WIDTH 13.1 % (11.6-13.7); WHITE BLOOD COUNT (AUTO) 5.7 K/uL (4.8-10.8)
[2023-02-01 05:38] LABS: ANION GAP 9.1 (8-16); CARBON DIOXIDE 27.9 mmol/L (21-32); CHLORIDE 104 mmol/L (98-107); CREATININE 0.7 mg/dL (0.6-1.3); GLUCOSE 165 mg/dL (74-106); SODIUM SERUM 137 mmol/L (136-145); UREA NITROGEN, BLOOD 16 mg/dL (7-18)
[2023-02-01 05:43] LABS: MAGNESIUM 1.8 mg/dL (1.8-2.4); PHOSPHORUS 3.1 mg/dL (2.5-4.9)
[2023-02-01] MEDS: DOCUSATE SODIUM 100 MG GELCAP PO SCH (10:38)
[2023-02-01] MEDS: ECOTRIN 81 MG TABEC PO SCH (10:38)
[2023-02-01] MEDS: ATORVASTATIN 20 MG TAB PO SCH (10:39)
--- NOTE | 2023-02-01 11:42 | NUR ---
DC PLANNING: PATIENT HAS AN ORDER HIGHER LEVEL OF CARE FOR CARDIAC CATHETERIZATION. FAXED TO [facility] .AWAITING FOR THE RESPONSE . CM TO FOLLOW Addendum: 02/01/23 at 1431 by Bertha Gonzalez RN DC PLANNING: CALLED [facility] [phone] SPOKE WITH CASE MRI SPECIALIST ,STATED THE CM IS DELROY WILL CALL ME WHEN SHE ARRANGE WITH CONTRACTED HOSPITAL. PAUL SPOKE WITH PT'S DAUGHTER NOTIFIED HER THAT AWAITING FOR INSURANCE CONTRACTED HOSPITALS. CM TO FOLLOW Addendum: 02/01/23 at 1555 by Bertha Gonzalez RN DC PLANNING: CALLED [facility] SPOKE WITH INTERNATIONAL TRADE SPECIALIST STATED STILL AWAITING FOR THE CM TO RESPOND. PAUL ASKED THE DIRECT PHONE NUMBER HE IS UNABLE TO GIVE THE PHONE NUMBER HE CAN ONLY MESSAGE HER, NAME DELROY. PAUL UPDATED PT'S DAUGHTER SANGEETHA AND ENCOURAGED HER TO CALL THE INSURANCE. CM TO FOLLOW Addendum: 02/01/23 at 1654 by Bertha Gonzalez RN DC PLANNING: RECEIVED A CALL FROM ADAM MILLER AT [facility] STATED THEY JUST GAVE HER AT 4:30PM AND TRIED TO WORK ON IT. ADAM ASKED IF ANY DR CAN ACCEPT HER AT [facility]. PAUL CALLED DR ELISEO Hinson. NOTIFIED HIM THAT PT NEEDS CARDIAC CATH. PER DR ELISEO Hinson WILL CALL [facility] TO ACCEPT PT IF THEY HAVE THE BED MIGHT DO THE CARDIAC CATH TOMORROW MORNING . PAUL CALLED ADAM AT [facility] PROVIDED 'C CELL PHONE AND UNIT NUMBER. ADAM WILL ARRANGE TRANSPORT AND WILL CALL THE FLOOR. NOTIFIED CHARGE NURSE DWAYNE. PAUL TO FOLLOW
--- NOTE | 2023-02-01 12:46 | NUR ---
DC PLANNING ASSESSMENT COMPLETE PLEASE REFER TO ASSESSMENT FOR ADDITIONAL DETAILS PTS DAUGHTER SANGEETHA REPORTS DC PLAN PENDING A HLOC ORDER. CM CURRENTLY WORKING ON IDENTIFYING HLOC FACILITY. PT AND PTS DAUGHTER AWARE. Addendum: 02/01/23 at 1246 by Hector Spann SS Amended: Links added.
--- NOTE | 2023-02-01 14:47 | NUR ---
02/01/23 RD INITIAL ASSESSMENT COMPLETED PLEASE REFER TO NUTRITION ASSESSMENT UNDER CARE ACTIVITY FOR ESTIMATED NUTRITIONAL NEEDS. 1. RECOMMEND ADDING [id number] TO CARDIAC DIET TOLERATED 2. NUTRITION EDUCATION AND HANDOUT FOR CARB COUNTING. 3. MONITOR GI, PO INTAKE, NUTRITION RELATED LAB VALUES. 4. RD TO FOLLOW-UP 7 DAYS, LOW RISK REVIEWED BY FELIPE NEELY RD
--- NOTE | 2023-02-01 17:17 | NUR ---
RECEIVE CALL FROM ADAM ([phone]), [facility], THAT PATIENT IS ACCEPT BY ELISEO BURTON IN [facility] F/U Addendum: 02/01/23 at 2001 by Val Vicente RN ENDORSE PATIENT IN STABLE CONDITION TO PM SHIFT NURSE WITH PENDING TRANSFER PATIENT TO [facility] PER COMPUTATIONAL LINGUIST ADAM ([phone]), [facility]. CHART COPY AND DISCHARGE PACKAGE READY TO GO
[2023-02-01] MEDS ORDERED: ATOR20TA40 PO (18:40)
[2023-02-01] MEDS ORDERED: ACET-9525 PO (18:40)
[2023-02-01] MEDS ORDERED: MORP4SOL10 IVP (18:40)
[2023-02-01] MEDS ORDERED: ASPI-1856 PO (18:40)
[2023-02-01] MEDS ORDERED: DOCU-299 PO (18:40)
[2023-02-01] MEDS ORDERED: ZOLP5TAB1 PO (18:40)
[2023-02-01] MEDS ORDERED: Heparin Per Pharmacy MC (18:40)
[2023-02-01] MEDS ORDERED: ACET-1182 PO (18:40)
[2023-02-01] MEDS ORDERED: ONDA2SOL45 IVP (18:40)
[2023-02-01] MEDS: ZOLPIDEM 5 MG TAB PO PRN (21:07)
[2023-02-02] VITALS: BP 136/68
[2023-02-02 04:00] VITALS: BP 123/60
[2023-02-02 06:07] LABS: ANION GAP 11.3 (8-16); CARBON DIOXIDE 28.9 mmol/L (21-32); CHLORIDE 101 mmol/L (98-107); CREATININE 0.8 mg/dL (0.6-1.3); GLUCOSE 149 mg/dL (74-106); MAGNESIUM 1.7 mg/dL (1.8-2.4); PHOSPHORUS 3.7 mg/dL (2.5-4.9); POTASSIUM 4.2 mmol/L (3.5-5.1); SODIUM SERUM 137 mmol/L (136-145); UREA NITROGEN, BLOOD 15 mg/dL (7-18)
[2023-02-02 06:17] LABS: BASOPHILS % (AUTO) 0.4 % (0.0-2.0); EOSINOPHILS # (AUTO) 0.1 K/uL (0-0.4); EOSINOPHILS % (AUTO) 1.5 % (0.0-4.0); HEMATOCRIT 39.6 % (36-48); HEMOGLOBIN 13.2 g/dL (12.0-16.0); LYMPHOCYTES # (AUTO) 2.1 K/uL (2.5-16.5); LYMPHOCYTES % (AUTO) 25.6 % (20.5-51.1); MEAN CORPUSCULAR HEMOGLOBIN 32 pg (27-31); MEAN CORPUSCULAR HGB CONC 33 g/dL (33-37); MEAN CORPUSCULAR VOLUME 94.8 fL (80-94); MONOCYTES # (AUTO) 0.7 K/uL (0.8-1.0); MONOCYTES % (AUTO) 8.3 % (1.7-9.3); NEUTROPHILS # (AUTO) 5.2 K/uL (1.8-7.7); NEUTROPHILS % (AUTO) 64.2 % (42.2-75.2); PLATELET COUNT (AUTO) 151 K/uL (140-450); RED BLOOD CELL COUNT(AUTO) 4.18 MIL/uL (4.20-5.40); RED CELL DISTRIBUTION WIDTH 12.8 % (11.6-13.7); WHITE BLOOD COUNT (AUTO) 8.1 K/uL (4.8-10.8)
[2023-02-02 08:00] VITALS: BP 160/60
[2023-02-02] MEDS: MAGNESIUM OXIDE 400 MG TAB PO PRN (08:28)
[2023-02-02] MEDS: DOCUSATE SODIUM 100 MG GELCAP PO SCH (08:28)
[2023-02-02] MEDS: ATORVASTATIN 20 MG TAB PO SCH (08:28)
[2023-02-02] MEDS: ECOTRIN 81 MG TABEC PO SCH (08:28)
--- NOTE | 2023-02-02 08:55 | NUR ---
RECEIVED CALL FR5OM MISTI MILLER AT [facility] STATES [facility] WILL DIGITAL PHOTO PRINTER PATIENT IN 30 MINS
--- NOTE | 2023-02-02 09:23 | NUR ---
REPORT GIVEN TO FELICIA PHAM AT [facility]
[2023-02-02] MEDS: hePARIN / DEXT 5% PREMIX 250 ML IV SCH (09:50)
--- NOTE | 2023-02-02 10:16 | NUR ---
[facility] PICKED UP PATIENT AND LEFT @ 0945, PT. LEFT IN STABLE CONDITION, WITH HEPARIN GTT.
== END 2023-02-02 10:00 | disposition short-term general hospital (02) | DRG 64 ==
LOC: MED 10:33 → MTU 15:25
PROVIDERS: ADMIT Hospitalist; ATTEND Internal Medicine Cardiovascular Disease
DX: I63.9 Cerebral infarction, unspecified (principal); I21.4 Non-ST elevation (NSTEMI) myocardial infarction; I10 Essential (primary) hypertension; E11.9 Type 2 diabetes mellitus without complications; Z20.822 Contact with and (suspected) exposure to COVID-19; R29.702 NIHSS score 2; E78.5 Hyperlipidemia, unspecified; Z95.0 Presence of cardiac pacemaker; Z87.891 Personal history of nicotine dependence
CPT/HCPCS: 36415; 70450; 71045; 71275; 80048; 80053; 81003; 83735; 84100; 84484; 85025; 85610; 85730; 86886; 86900; 86901; 87040; 93005; 96365; 96375; 99291; 99292; J1644; J1956; J2270; J2405; Q0092; Q9967

== ENCOUNTER 2023-02-07 14:28 | Emergency (ER) | payer MEDICARE ==
[~2023-02-07] VITALS: Ht 152.4 cm; Wt 61.7 kg
[~2023-02-07 14:28] MED LIST changes: +ACET-1182 PO; +ACET-9525 PO; +ASPI-1856 PO; +ATOR20TA40 PO; +DAPA5TAB PO; +DOCU-299 PO; -GABA-636 PO; +Heparin Per Pharmacy MC; +LISI-486 PO; -LISI5TAB18 PO; -MECL-303 PO; +MORP4SOL10 IVP; +OMEG-64 PO; +ONDA2SOL45 IVP; -SIMV-371 PO; +ZOLP5TAB1 PO
[2023-02-07 14:47] VITALS: BP 155/70
[2023-02-07] MEDS ORDERED: ACETAMINOPHEN 325 MG TAB PO ONE (14:50)
--- NOTE | 2023-02-07 14:51 | NUR ---
PT WHEELCHAIR TO BED 10
[2023-02-07] MEDS ORDERED: GABA100C PO (15:34)
[2023-02-07] MEDS ORDERED: ACET-10509 PO (15:34)
[2023-02-07] MEDS ORDERED: ASPI-1129 PO (15:48)
[2023-02-07 16:00] VITALS: BP 126/53
--- NOTE | 2023-02-07 16:00 | NUR ---
Patient discharged with v/s stable. Written and verbal after care instructions given and explained. Patient verbalized understanding. Ambulatory with by caregiver. All questions addressed prior to discharge. Advised to follow up with PMD. PT. STABLE FOR D.C, NO ACUTE DISTRESS. FAMILY AT BEDSIDE. BP STABLE. PT. WILLING TO GO HOME WITH NO DIFFICULTIES
== END 2023-02-07 16:00 | disposition home or self-care (01) ==
LOC: MED 14:28
DX: M25.512 Pain in left shoulder (principal); Z86.73 Personal history of transient ischemic attack (TIA), and cerebral infarction without residual deficits; Z79.899 Other long term (current) drug therapy
CPT/HCPCS: 73030; 93005; 99283